=== PATIENT | female | born 1975 | race African-American/Black ===

== ENCOUNTER 2022-01-10 01:20 | Emergency (ER) | payer MEDICAID ==
[~2022-01-10] VITALS: Ht 165.1 cm; Wt 117.0 kg
[2022-01-10] MEDS ORDERED: ONDANSETRON HCL 4MG/2ML INJ IV STA (01:52)
[2022-01-10] MEDS ORDERED: MORPHINE SULFATE 4 MG/ML CPJ (NOT FOR IM USE) IV STA (01:52)
[2022-01-10] MEDS ORDERED: SODIUM CHLORIDE 0.9% 1,000 ML IV ONE (02:00)
[2022-01-10] MEDS ORDERED: NEOMY SULF/BACITRAC ZN/POLY OINT 28GM TOP SCH (02:00)
[2022-01-10] MEDS ORDERED: MORPHINE SULFATE 4 MG/ML CPJ (NOT FOR IM USE) IV ONE (03:30)
[2022-01-10] MEDS ORDERED: PETR1BAN TP (04:44)
[2022-01-10] MEDS ORDERED: POLY1BAN TP (04:44)
[2022-01-10] MEDS ORDERED: NEOM28.37 TP (04:44)
[2022-01-10] MEDS ORDERED: KETOROLAC 15MG/ML VIAL IV ONE (04:45)
[2022-01-10 05:16] VITALS: BP 116/63
== END 2022-01-10 05:25 | disposition home or self-care (01) ==
LOC: ER 01:20
DX: T24.231A Burn of second degree of right lower leg, initial encounter (principal); T25.221A Burn of second degree of right foot, initial encounter; T25.222A Burn of second degree of left foot, initial encounter; T24.212A Burn of second degree of left thigh, initial encounter; I10 Essential (primary) hypertension; X10.2XXA Contact with fats and cooking oils, initial encounter; Y93.G3 Activity, cooking and baking; Y93.89 Activity, other specified; Y92.010 Kitchen of single-family (private) house as the place of occurrence of the external cause
CPT/HCPCS: 96361; 96374; 96375; 96376; 99284; J1885; J2270; J2405; J7030

== ENCOUNTER 2025-01-17 10:34 | Emergency (ER) | payer MEDICAID, OTHER ==
[~2025-01-17] VITALS: Ht 165.1 cm; Wt 75.0 kg
[~2025-01-17 10:34] MED LIST: NEOM28.37 TP; PETR1BAN TP; POLY1BAN TP
[2025-01-17 10:44] VITALS: TEMP 36.9; O2SAT 99
[2025-01-17 12:16] VITALS: BP 170/90; PULSE 67; RESP 18; O2SAT 100
== END 2025-01-17 13:20 | disposition home or self-care (01) ==
LOC: ER 10:34
DX: M25.572 Pain in left ankle and joints of left foot (principal); M79.672 Pain in left foot; I10 Essential (primary) hypertension; Z79.899 Other long term (current) drug therapy
CPT/HCPCS: 73610; 73630; 99284